=== PATIENT | male | born 1980 | race Two or more races ===

== ENCOUNTER 2025-01-13 11:28 | Emergency (ER) | payer MEDICAID, OTHER ==
[~2025-01-13] VITALS: Ht 165.1 cm; Wt 61.2 kg
[2025-01-13 12:45] LABS: BASOPHILS # (AUTO) 0.1 K/uL (0.0-0.2); BASOPHILS % (AUTO) 0.6 % (0.0-2.0); EOSINOPHILS # (AUTO) 0.2 K/uL (0.0-0.7); EOSINOPHILS % (AUTO) 1.8 % (0.0-6.0); HEMATOCRIT 45 % (39-51); HEMOGLOBIN 15.6 g/dL (13.5-17.5); LYMPHOCYTES # (AUTO) 2.6 K/uL (0.8-4.8); LYMPHOCYTES % (AUTO) 27.7 % (20.0-44.0); MEAN CORPUSCULAR HEMOGLOBIN 32 PG (26.0-33.0); MEAN CORPUSCULAR HGB CONC 35 g/dl (31.0-36.0); MEAN CORPUSCULAR VOLUME 91 fL (80-96); MONOCYTES # (AUTO) 0.6 K/uL (0.1-1.30); MONOCYTES % (AUTO) 6.1 % (2.0-12.0); NEUTROPHILS # (AUTO) 5.9 K/uL (1.8-8.9); NEUTROPHILS % (AUTO) 63.8 % (43.0-81.0); PLATELET COUNT (AUTO) 230 K/uL (150-450); RED BLOOD CELL COUNT(AUTO) 4.94 MIL/uL (4.5-6.0); RED CELL DISTRIBUTION WIDTH 13.1 % (11.5-15.0); WHITE BLOOD COUNT (AUTO) 9.3 K/uL (4.3-11.0)
[2025-01-13 12:52] LABS: APPEARANCE,URINE CLEAR (CLEAR); BILIRUBIN,URINE NEGATIVE (NEGATIVE); BLOOD, URINE NEGATIVE Ery/uL (NEGATIVE); COLOR,URINE YELLOW (YELLOW); KETONES,URINE NEGATIVE (NEGATIVE); LEUKOCYTE ESTERASE ,URINE NEGATIVE (NEGATIVE); NITRITE, URINE NEGATIVE (NEGATIVE); PROTEIN,URINE NEGATIVE (NEGATIVE); UGLUCOSE NEGATIVE (NEGATIVE); UROBILINOGEN,URINE 0.2 EU/dL (0.2)
[2025-01-13 13:05] LABS: CALCIUM, SERUM 8.7 mg/dL (8.5-10.1); CREATININE 0.8 mg/dL (0.6-1.3)
[2025-01-13 13:15] LABS: BILIRUBIN,DIRECT 0.3 mg/dL (0.0-0.2); BILIRUBIN,TOTAL 1.9 mg/dL (0.2-1.0); TOTAL PROTEIN, SERUM 7.5 g/dL (6.4-8.2)
[2025-01-13] MEDS: MAG HYDROX/AL HYDROX/SIMETH 30 ML UDC PO ONE (15:00)
[2025-01-13] MEDS ORDERED: FAMO-131 PO (15:00)
[2025-01-13] MEDS: FAMOTIDINE/PF INJ 20 MG/2 ML VIAL IV ONE (15:00)
[2025-01-13] MEDS: ONDANSETRON HCL/PF 4 MG/2 ML VIAL IVP ONE (15:00)
[2025-01-13] MEDS ORDERED: ONDA4TAB5 PO (15:00)
[2025-01-13] MEDS: LIDOCAINE VISCOUS 2% UD 15 ML UDC MM ONE (15:00)
[2025-01-13] MEDS: IV NS 0.9% 500 ML BAG IV ONE (15:00)
[2025-01-13] MEDS ORDERED: MAG HYDROX/AL HYDROX/SIMETH 30 ML UDC ONE (15:13)
[2025-01-13] MEDS ORDERED: LIDOCAINE VISCOUS 2% UD 15 ML UDC ONE (15:13)
[2025-01-13] MEDS ORDERED: FAMOTIDINE/PF INJ 20 MG/2 ML VIAL IV ONE (15:13)
[2025-01-13] MEDS ORDERED: ONDANSETRON HCL/PF 4 MG/2 ML VIAL ONE (15:13)
[2025-01-13 17:08] VITALS: BP 141/81; TEMP 98.3; O2SAT 98
== END 2025-01-13 17:08 | disposition home or self-care (01) ==
LOC: ER 11:38
DX: R10.12 Left upper quadrant pain (principal); R10.13 Epigastric pain; R11.0 Nausea
CPT/HCPCS: 99285; 74176; 96374; 76705; 96361; 96375; 85025; 80048; 83690; 80076; 81003; 36415; J3490; J2405; J7040